=== PATIENT | male | born 1950 | race American Indian/Alaskan Native ===

== ENCOUNTER 2017-04-03 00:51 | Emergency (ER) | payer MEDICARE, OTHER ==
[2017-04-03 01:23] LABS: Hematocrit 48.1 % (35.5-45.6); Hemoglobin 15.9 gm/dl (11.8-15.2); Mean Corpuscular HGB Conc 33 % (32-34); Mean Corpuscular Hemoglobin 29 pg (28-32); Mean Corpuscular Volume 88 fl (84-94); Platelet Count 270 K/mm3 (140-440); Red Blood Count 5.46 M/mm3 (3.65-5.03); Red Cell Distribution Width 13.4 % (13.2-15.2)
[2017-04-03] MEDS ORDERED: ZOFRAN IV ONE (01:30)
[2017-04-03] MEDS ORDERED: NACL 0.9% 1000 ML 1,000 ML IV ONE (01:30)
[2017-04-03] MEDS ORDERED: MORPHINE IV ONE (01:30)
--- NOTE | 2017-04-03 01:37 | Emergency Department Report ---
ED Abdominal Pain HPI - General Chief Complaint: Abdominal Pain Stated Complaint: RT FLANK PAIN Time Seen by Provider: 04/03/17 01:29 Source: patient Mode of arrival: Ambulatory Limitations: No Limitations - History of Present Illness Initial Comments: Patient is a 58-year-old male with a history of hypertension presenting to the ER with abdominal pain. Patient reports at 11 PM, approximately 2 ago he experienced acute sharp right-sided flank pain associated with nausea and vomiting. Patient reports the pain is sharp, constant, no radiation or migration. Patient reports he's never had this type of pain before, exacerbated with movement and alleviated by nothing. Otherwise no fevers, chills , SOB, CP, trauma, falls, renal colic, back pain, dysuria, penile pain, scrotal swelling/pain, travel, surgeries, sick contacts MD Complaint: abdominal pain, flank pain -: Sudden - Related Data Previous Rx's Medication Instructions Recorded Last Taken Type Aspirin [Aspirin TAB] 325 mg PO QDAY #30 tablet 09/04/13 Unknown Rx Hydrochlorothiazide [HCTZ] 12.5 mg PO QDAY #30 capsule 09/04/13 Unknown Rx Lisinopril [Zestril TAB] 10 mg PO QDAY #30 tablet 09/04/13 Unknown Rx Simvastatin [Zocor TAB] 20 mg PO QHS #30 tablet 09/04/13 Unknown Rx Amlodipine Besylate [Norvasc] 2.5 mg PO DAILY #30 tab 05/03/16 Unknown Rx HYDROcodone/APAP 5-325 [[place] 1 each PO Q6HR PRN #12 tablet 04/03/17 Unknown Rx 5/325] Ondansetron [Zofran Odt] 4 mg PO Q8HR PRN #12 tab.rapdis 04/03/17 Unknown Rx Allergies Allergy/AdvReac Type Severity Reaction Status Date / Time No Known Allergies Allergy Unverified 09/01/13 12:35 ED Review of Systems ROS: Stated complaint: RT FLANK PAIN Other details as noted in HPI Comment: All other systems reviewed and negative ED Past Medical Hx - Past Medical History Previous Medical History?: Yes Hx Hypertension: Yes Hx Congestive Heart Failure: No Hx Diabetes: No Hx Asthma: No Hx COPD: No Additional medical history: glaucoma - Surgical History Past Surgical History?: No - Social History Smoking Status: Never Smoker Substance Use Type: None - Medications Home Medications: Home Medications Medication Instructions Recorded Confirmed Last Taken Type Aspirin [Aspirin TAB] 325 mg PO QDAY #30 tablet 09/04/13 Unknown Rx Hydrochlorothiazide [HCTZ] 12.5 mg PO QDAY #30 capsule 09/04/13 Unknown Rx Lisinopril [Zestril TAB] 10 mg PO QDAY #30 tablet 09/04/13 Unknown Rx Simvastatin [Zocor TAB] 20 mg PO QHS #30 tablet 09/04/13 Unknown Rx Amlodipine Besylate [Norvasc] 2.5 mg PO DAILY #30 tab 05/03/16 Unknown Rx HYDROcodone/APAP 5-325 [[place] 1 each PO Q6HR PRN #12 tablet 04/03/17 Unknown Rx 5/325] Ondansetron [Zofran Odt] 4 mg PO Q8HR PRN #12 tab.rapdis 04/03/17 Unknown Rx ED Physical Exam - General Limitations: No Limitations General appearance: alert, in no apparent distress - Head Head exam: Present: atraumatic, normocephalic - Eye Eye exam: Present: normal appearance - ENT ENT exam: Present: mucous membranes moist - Neck Neck exam: Present: normal inspection - Respiratory Respiratory exam: Present: normal lung sounds bilaterally. Absent: respiratory distress, wheezes, rales, rhonchi, stridor - Cardiovascular Cardiovascular Exam: Present: regular rate, normal rhythm, normal heart sounds. Absent: irregular rhythm, systolic murmur, diastolic murmur, rubs, gallop - GI/Abdominal GI/Abdominal exam: Present: soft, tenderness (R Flank tenderness, no tenderness at McBurneys point), normal bowel sounds. Absent: distended, guarding, rebound , rigid, organomegaly, mass, pulsatile mass - Rectal Rectal exam: Present: deferred - Extremities Exam Extremities exam: Present: normal inspection - Back Exam Back exam: Present: normal inspection - Neurological Exam Neurological exam: Present: alert, oriented X3 - Psychiatric Psychiatric exam: Present: normal affect, normal mood - Skin Skin exam: Present: warm, dry, intact, normal color. Absent: rash ED Course Vital Signs 04/03/17 04/03/17 04/03/17 01:00 01:42 01:45 Temperature 98.1 F Pulse Rate 74 69 Respiratory 16 21 Rate Blood Pressure 177/101 O2 Sat by Pulse 99 95 97 Oximetry 0504/03/17 04/03/17 02:00 02:04 02:15 Temperature Pulse Rate 62 Respiratory 15 15 19 Rate Blood Pressure 177/101 157/85 O2 Sat by Pulse 97 100 95 Oximetry 04/03/17 03:19 Temperature Pulse Rate Respiratory Rate Blood Pressure 157/85 O2 Sat by Pulse 96 Oximetry ED Medical Decision Making - Lab Data Result diagrams: 04/03/17 01:07 04/03/17 01:07 - Radiology Data Radiology results: report reviewed CT abdomen and pelvis: There is mild right hydronephrosis and hydroureter. No obstruction stone is seen likely has passed. Multiple bilateral renal calculi are noted. There is significant inflammatory change and shaking of the perinephric fat on the right. Critical care attestation.: If time is entered above; I have spent that time in minutes in the direct care of this critically ill patient, excluding procedure time. ED Disposition Clinical Impression: Renal colic on right side, Hypertension Disposition: DISCHARGED TO HOME OR SELFCARE Is pt being admited?: No Condition: Stable Instructions: Renal Colic (ED), Hypertension (ED) Prescriptions: HYDROcodone/APAP 5-325 [Aline 5/325] 1 each PO Q6HR PRN #12 tablet PRN Reason: Pain Ondansetron [Zofran Odt] 4 mg PO Q8HR PRN #12 tab.rapdis PRN Reason: Nausea Referrals: DARIO BLACKBURN MD [Primary Care Provider] - 3-5 Days
[2017-04-03 01:41] LABS: Alanine Aminotransferase 22 units/L (7-56); Albumin 4.6 g/dL (3.9-5); Albumin/Globulin Ratio 1.4 %; Alkaline Phosphatase 86 units/L (35-129); Anion Gap 19 mmol/L; BUN/Creatinine Ratio 16.92; Blood Urea Nitrogen 22 mg/dL (9-20); Calcium 9.4 mg/dL (8.4-10.2); Carbon Dioxide 22 mmol/L (22-30); Chloride 103.6 mmol/L (98-107); Glucose 137 mg/dL (75-100); Lipase 35 units/L (13-60); Sodium 141 mmol/L (137-145); Total Protein 7.9 g/dL (6.3-8.2)
[2017-04-03 02:24] LABS: Bilirubin,Urine NEG (Negative); Blood,Urine NEG (Negative); Ketones,Urine TR mg/dL (Negative); Leukocyte Esterase,Urine NEG (Negative); Mucus,Urine FEW /HPF; Nitrite,Urine NEG (Negative); Protein,Urine <15 mg/dL mg/dL (Negative); Urobilinogen,Urine < 2.0 mg/dL (<2.0)
[2017-04-03 03:07] LABS: Basophils % (Manual) 0 % (0.0-1.8); Blastocytes % (Manual) 0 %
[2017-04-03 03:08] LABS: Diff Status Complete; RBC Morphology Normal
--- NOTE | 2017-04-03 03:15 | Cat Scan Report ---
FINAL REPORT PROCEDURE: CT ABDOMEN PELVIS WO CON TECHNIQUE: Computerized axial tomography of the abdomen and pelvis was performed without intravenous contrast. This study is performed without intravascular contrast material and its sensitivity for abdominal and pelvic pathology, including neoplasms, inflammation, abscess, free fluid, thrombosis, arterial dissection and infarction, is reduced compared with a contrast enhanced study. HISTORY: R flank pain COMPARISON: No prior studies are available for comparison. FINDINGS: Visualized lower thorax: No significant abnormality. Liver: There is small 1 centimeter area of hypoattenuation in the posterior right lobe of the liver, this is most likely a cyst.. Spleen: Normal size and attenuation. Gallbladder and biliary system: Normal. Pancreas: Normal. Adrenals: Normal. Kidneys: Both kidneys have normal size. Mild left hydronephrosis and hydroureter into the pelvis. No obstructing stone or lesion is seen. Minimal soft tissue swelling identified around the proximal right ureter and a portion of the right kidney. Bilateral renal calculi measure between 1 and 3 millimeters.. GI tract: No obstruction. No ileus or enteritis. The cecum is normal. The colon has a normal caliber and appearance. Mild diverticular change in the distal colon. Lymph nodes and mesentery: Normal. Vasculature: Normal. Bladder: Normal. Reproductive organs: Normal. Peritoneum: No free fluid. Musculoskeletal structures: No significant abnormality. Other: None. IMPRESSION: There is mild right hydronephrosis and hydroureter. No obstructing stone is seen. Multiple bilateral renal calculi are noted. There is significant inflammatory change and streaking of the perinephric fat on the right. .
[2017-04-03 03:38] VITALS: BP 157/85
== END 2017-04-03 04:00 | disposition home or self-care (01) ==
LOC: ED 00:51
DX: N23 Unspecified renal colic (principal); I10 Essential (primary) hypertension
CPT/HCPCS: 36415; 74176; 80053; 81001; 83690; 85007; 85025; 96361; 96374; 96375; 99284; J2270; J2405; J7030

== ENCOUNTER 2018-08-14 10:59 | Emergency (ER) | payer MEDICARE ==
[2018-08-14 11:06] VITALS: BP 172/93
--- NOTE | 2018-08-14 12:01 | Emergency Department Report ---
ED General Adult HPI - General Chief complaint: Dental/Oral Stated complaint: SWELLING IN LIPS Source: patient Mode of arrival: Ambulatory Limitations: No Limitations - History of Present Illness Initial comments: This is a 67-year-old -[place] male who presents with swelling to corner of lips upon awaking this morning. Past medical history of hypertension and glaucoma. Patient reports the corner inside of upper and lower lips were swollen upon awakening. He is not sure if this is food related more allergy to blood pressure medication. He reports similar symptoms 2 years ago and seen here in this emergency room. His blood pressure medication was changed from lisinopril to amlodipine. He reports swelling has improved since this morning. He has not taken pressure medication today. He also reports itching to right forearm. Patient denies difficulty swallowing, drooling, shortness of breath, chest pain. -: This morning Location: face (the inner corners of upper and lower lips on left side) Radiation: non-radiation Severity scale (0 -10): 2 Improves with: none Worsens with: none Associated Symptoms: denies other symptoms Treatments Prior to Arrival: none - Related Data Previous Rx's Medication Instructions Recorded Last Taken Type Aspirin [Aspirin TAB] 325 mg PO QDAY #30 tablet 09/04/13 Unknown Rx Lisinopril [Zestril TAB] 10 mg PO QDAY #30 tablet 09/04/13 Unknown Rx Simvastatin [Zocor TAB] 20 mg PO QHS #30 tablet 09/04/13 Unknown Rx hydroCHLOROthiazide [HCTZ] 12.5 mg PO QDAY #30 capsule 09/04/13 Unknown Rx Amlodipine Besylate [Norvasc] 2.5 mg PO DAILY #30 tab 05/03/16 Unknown Rx HYDROcodone/APAP 5-325 [[place] 1 each PO Q6HR PRN #12 tablet 04/03/17 Unknown Rx 5/325] Ondansetron [Zofran Odt] 4 mg PO Q8HR PRN #12 tab.rapdis 04/03/17 Unknown Rx Famotidine [Pepcid] 40 mg PO QHS #10 tablet 08/14/18 Unknown Rx Prednisone [predniSONE 10 mg 10 mg PO .TAPER #1 tab.ds.pk 08/14/18 Unknown Rx (6-Day Pack, 21 Tabs)] diphenhydrAMINE [Benadryl CAP] 25 mg PO Q8HR PRN #10 capsule 08/14/18 Unknown Rx Allergies Allergy/AdvReac Type Severity Reaction Status Date / Time No Known Allergies Allergy Unverified 09/01/13 12:35 ED Review of Systems ROS: Stated complaint: SWELLING IN LIPS Other details as noted in HPI Constitutional: denies: chills, fever ENT: denies: ear pain, throat pain Respiratory: denies: cough, shortness of breath, wheezing Cardiovascular: denies: chest pain, palpitations Gastrointestinal: denies: abdominal pain, nausea, diarrhea Skin: other (swelling to inner corner of upper and lower lips). denies: rash, lesions Neurological: denies: headache, weakness, paresthesias Psychiatric: denies: anxiety, depression ED Past Medical Hx - Past Medical History Previous Medical History?: Yes Hx Hypertension: Yes Hx Congestive Heart Failure: No Hx Diabetes: No Hx Asthma: No Hx COPD: No Additional medical history: glaucoma - Social History Smoking Status: Never Smoker Substance Use Type: None - Medications Home Medications: Home Medications Medication Instructions Recorded Confirmed Last Taken Type Aspirin [Aspirin TAB] 325 mg PO QDAY #30 tablet 09/04/13 Unknown Rx Lisinopril [Zestril TAB] 10 mg PO QDAY #30 tablet 09/04/13 Unknown Rx Simvastatin [Zocor TAB] 20 mg PO QHS #30 tablet 09/04/13 Unknown Rx hydroCHLOROthiazide [HCTZ] 12.5 mg PO QDAY #30 capsule 09/04/13 Unknown Rx Amlodipine Besylate [Norvasc] 2.5 mg PO DAILY #30 tab 05/03/16 Unknown Rx HYDROcodone/APAP 5-325 [[place] 1 each PO Q6HR PRN #12 tablet 04/03/17 Unknown Rx 5/325] Ondansetron [Zofran Odt] 4 mg PO Q8HR PRN #12 tab.rapdis 04/03/17 Unknown Rx Famotidine [Pepcid] 40 mg PO QHS #10 tablet 08/14/18 Unknown Rx Prednisone [predniSONE 10 mg 10 mg PO .TAPER #1 tab.ds.pk 08/14/18 Unknown Rx (6-Day Pack, 21 Tabs)] diphenhydrAMINE [Benadryl CAP] 25 mg PO Q8HR PRN #10 capsule 08/14/18 Unknown Rx ED Physical Exam - General Limitations: No Limitations General appearance: alert, in no apparent distress, obese - ENT ENT exam: Present: mucous membranes moist - Neck Neck exam: Present: normal inspection. Absent: lymphadenopathy - Respiratory Respiratory exam: Present: normal lung sounds bilaterally. Absent: respiratory distress - Cardiovascular Cardiovascular Exam: Present: regular rate, normal rhythm. Absent: systolic murmur, diastolic murmur, rubs, gallop - GI/Abdominal GI/Abdominal exam: Present: soft, normal bowel sounds - Neurological Exam Neurological exam: Present: alert, oriented X3 - Psychiatric Psychiatric exam: Present: normal affect, normal mood - Skin Skin exam: Present: warm, dry, intact, normal color, other (mild swelling to inner corners of upper and lower lips). Absent: rash ED Course Vital Signs 08/14/18 11:03 Temperature 98.7 F Pulse Rate 72 Respiratory 16 Rate Blood Pressure 172/93 O2 Sat by Pulse 97 Oximetry ED Medical Decision Making - Medical Decision Making Patient was examined by me. Vitals are normal and patient is in no acute distress. Patient given Pepcid 20 mg and Decadron 8 mg IM while in ER. Informed of possible allergic reaction not related to amlodipine. Angioedema is a common side effect of nay inhibitors, which is why he was taken off medication a few years ago. Patient informed of results. Continue amlodipine for HTN. Start prednisone taper, pepcid, and vistaril for allergic reaction. Plan discussed with patient to discharge home and treat outpatient. He agrees with ER plan. Patient discharged home in stable condition. Follow up with PCP in 2-3 days. Critical care attestation.: If time is entered above; I have spent that time in minutes in the direct care of this critically ill patient, excluding procedure time. ED Disposition Clinical Impression: Allergic reaction Qualifiers: Encounter type: initial encounter Qualified Code(s): T78.40XA - Allergy, unspecified, initial encounter Disposition: TO HOME OR SELFCARE Is pt being admited?: No Does the pt Need Aspirin: No Condition: Stable Instructions: Allergies (ED) Additional Instructions: Complete full course of steroids as prescribed. Continue taking amlodipine medication for blood pressure management. Follow-up with primary care provider in the next 2-3 days. Return to emergency room if short of breath, drooling, difficulty swallowing, and tongue enlargement. Prescriptions: Famotidine [Pepcid] 40 mg PO QHS #10 tablet diphenhydrAMINE [Benadryl CAP] 25 mg PO Q8HR PRN #10 capsule PRN Reason: Itching Prednisone [predniSONE 10 mg (6-Day Pack, 21 Tabs)] 10 mg PO .TAPER #1 tab.ds.pk Referrals: [facility] [Provider Group] - 3-5 Days [facility] [Provider Group] - 3-5 Days [facility] [Provider Group] - 3-5 Days Time of Disposition: 12:41 Print Language: SWAZI
[2018-08-14] MEDS ORDERED: PEPCID PO ONE (12:08)
[2018-08-14] MEDS ORDERED: DECADRON IM ONE (12:08)
[2018-08-14] MEDS ORDERED: NACL 0.9% 1000 ML 2,000 ML ONE (12:19)
== END 2018-08-14 12:58 | disposition home or self-care (01) ==
LOC: ED 10:59
DX: T78.40XA Allergy, unspecified, initial encounter (principal); L29.9 Pruritus, unspecified; I10 Essential (primary) hypertension; Z79.82 Long term (current) use of aspirin; X58.XXXA Exposure to other specified factors, initial encounter
CPT/HCPCS: 96372; 99282; J1100; J7030